=== PATIENT | male | born 1935 | race Caucasian/White ===

== ENCOUNTER → 2016-07-18 | Outpatient (CLI) | payer MEDICARE, OTHER | END | disposition home or self-care (01) | LOC: LAB.O 08:44 | PROVIDERS: ATTEND Internal Medicine Hematology & Oncology | DX: C88.0 Waldenstrom macroglobulinemia (principal); N20.1 Calculus of ureter ==

== ENCOUNTER → 2017-01-09 | Outpatient (CLI) | payer MEDICARE, OTHER ==
--- NOTE | 2017-01-09 16:06 | RAD ---
EXAM DESCRIPTION: Chest,2 Views CLINICAL HISTORY: SOB COMPARISON: None available FINDINGS: The heart is at the upper limits of normal size. Mediastinal contours are otherwise unremarkable. There is no airspace consolidation. There is subtle bilateral perihilar interstitial prominence. Mild blunting of the posterior costophrenic angles is noted on the lateral view. There is no pneumothorax or acute fracture. IMPRESSION: Indistinct bronchovascular markings and borderline cardiomegaly suggest mild pulmonary vascular congestion. Infection, probably viral, could have a similar appearance. Tiny bilateral pleural effusions. Electronically signed by: Boby Beltrán MD 01/09/2017 4:05 PM CDT
== END | disposition home or self-care (01) ==
LOC: YCFC.O 15:34
PROVIDERS: ATTEND Nurse Practitioner Family
DX: R06.02 Shortness of breath (principal)

== ENCOUNTER → 2017-01-12 | Outpatient (CLI) | payer MEDICARE, OTHER | END | disposition home or self-care (01) | LOC: GMAJ 14:38 | PROVIDERS: ATTEND Family Medicine | DX: I50.9 Heart failure, unspecified (principal) ==

== ENCOUNTER → 2017-01-21 | Outpatient (CLI) | payer MEDICARE, OTHER | END | disposition home or self-care (01) | LOC: GMAJ 14:52 | PROVIDERS: ATTEND Family Medicine | DX: I48.2 Chronic atrial fibrillation (principal); R60.0 Localized edema ==

== ENCOUNTER → 2017-01-23 | Outpatient (CLI) | payer MEDICARE, OTHER | END | disposition home or self-care (01) | LOC: LAB.O 08:15 | PROVIDERS: ATTEND Internal Medicine Hematology & Oncology | DX: D47.2 Monoclonal gammopathy (principal) ==

== ENCOUNTER → 2017-01-29 | Outpatient (CLI) | payer MEDICARE, OTHER | END | disposition home or self-care (01) | LOC: GMAJ 15:01 | PROVIDERS: ATTEND Family Medicine | DX: I48.2 Chronic atrial fibrillation (principal); R06.02 Shortness of breath ==

== ENCOUNTER → 2017-02-05 | Outpatient (CLI) | payer MEDICARE, OTHER | END | disposition home or self-care (01) | LOC: GMAJ 14:35 | PROVIDERS: ATTEND Family Medicine | DX: I50.9 Heart failure, unspecified (principal) ==

== ENCOUNTER → 2017-08-04 | Outpatient (CLI) | payer MEDICARE, OTHER | LOC: GMAJ 11:11 | PROVIDERS: ATTEND Family Medicine | DX: Z12.5 Encounter for screening for malignant neoplasm of prostate (principal) ==

== ENCOUNTER → 2017-12-21 | Outpatient (CLI) | payer MEDICARE, OTHER ==
--- NOTE | 2017-12-21 17:04 | MRI ---
EXAM DESCRIPTION: Lumbar Spine w/o Contrast : Magnetic Resonance Imaging. CLINICAL HISTORY: LOW BACK PAIN COMPARISON: X-ray lumbar spine at outside clinic 12/15/2017. TECHNIQUE: Multiplanar, multiple standard sequences, non contrast MRI, lumbar spine. FINDINGS: L5-S1: Minimal to moderate disc space loss. Minimal disc desiccation. No significant bulging. Bony canal narrowing. Bilateral mild foraminal narrowing. Posterior elements are unremarkable. L4-5: Disc desiccation with posterior midline 5 mm bulge which also extends into the right paracentral canal and the right foramen with mild foraminal stenosis. Left foramen is patent. Posterior flavum ligament hypertrophy with minimal facet arthrosis and moderate canal stenosis centrally. L3-4: Disc desiccation and minimal disc space loss. Grade 1 anterolisthesis. Disc partially bulging uncovered posteriorly. Bilateral facet arthrosis and ligament hypertrophy contributing to mild canal stenosis. Severe to borderline left foraminal stenosis more on the left than the right. L2-3: Disc desiccation and tiny posterior bulge. Minimal facet arthrosis with moderate flavum ligament hypertrophy impressing on the posterior thecal sac and borderline mild central canal stenosis. Bilateral mild foraminal narrowing. L1-2: Normal signal in the disc and disc space preserved. Canal and foramina are patent. Minimal hypertrophy of the flavum ligaments and facet arthrosis. Conus terminates just above the disc space. T12-L1: Disc space preserved with normal signal. Posterior elements unremarkable. Canal and foramina are patent. Reduced lumbar lordosis with no scoliosis. Paravertebral soft tissues minimal paraspinal muscle atrophy. Cystic mass right kidney.. Normal marrow signal in the remaining vertebral bodies and the posterior elements. Vertebral bodies are not compressed at any level. IMPRESSION: 1. Posterior midline bulge of the L4-5 disc also extending into the right Canal and right foramen with mild right foraminal stenosis. Moderate central canal stenosis. Narrowing of the bilateral subarticular recesses. 2. Grade 1 anterolisthesis at L3-4 with posterior disc bulging. Mild central canal stenosis. Bilateral subarticular recess narrowing and borderline left foraminal stenosis bilaterally. 3. Multifactorial or Lyme mild central canal stenosis at L2-3. Electronically signed by: Sumeet Dumont MD 12/21/2017 5:02 PM CDT
== END ==
LOC: MRI 10:00
PROVIDERS: ATTEND Family Medicine
DX: M51.26 Other intervertebral disc displacement, lumbar region (principal); M43.16 Spondylolisthesis, lumbar region

== ENCOUNTER → 2018-02-22 | Outpatient (CLI) | payer MEDICARE, OTHER | LOC: LAB.O 14:26 | PROVIDERS: ATTEND Internal Medicine Hematology & Oncology | DX: C88.0 Waldenstrom macroglobulinemia (principal); D47.2 Monoclonal gammopathy ==

== ENCOUNTER → 2019-03-07 | Outpatient (CLI) | payer MEDICARE, OTHER | LOC: LAB.O 11:03 | PROVIDERS: ATTEND Internal Medicine Hematology & Oncology | DX: C88.0 Waldenstrom macroglobulinemia (principal); D47.2 Monoclonal gammopathy ==

== ENCOUNTER 2019-04-15 06:47 | Day surgery (SDC) | payer MEDICARE, OTHER ==
--- NOTE | 2019-04-14 09:14 | RAD ---
EXAM DESCRIPTION: Chest,2 Views CLINICAL HISTORY: PREOP EXAM FOR PORT PLACEMENT COMPARISON: Previous study January 09, 2017 TECHNIQUE: PA/lateral FINDINGS: Heart is prominent with normal pulmonary vascularity. No pleural effusion or pneumothorax. Lungs are clear with no consolidating infiltrate. Lateral view shows intact sternum and spurring in the mid T-spine. IMPRESSION: Prominent heart without congestive failure. Electronically signed by: Oh Izaguirre MD 04/14/2019 9:12 AM EDGING CATCHER
[2019-04-15] MEDS ORDERED: LIDOCAINE 1% 10 ML VIAL INJ ONE (07:00)
[2019-04-15] MEDS ORDERED: PROPOFOL 200 MG/20 ML VIAL IV ONE (07:00)
[2019-04-15] MEDS ORDERED: SODIUM CHL 0.9% 100ML MINI-BAG 100 ML IVPB ONE (07:15)
[2019-04-15] MEDS ORDERED: LACTATED RINGERS 1,000 ML ONE (07:15)
[2019-04-15] MEDS ORDERED: ceFAZolin SODIUM 1 GM VIAL ONE (07:15)
[2019-04-15] MEDS ORDERED: HEPARIN SODIUM 100 U/ML 5 ML SYG IV ONE (07:47)
[2019-04-15] MEDS ORDERED: SODIUM BICARBONATE VIAL 50 MEQ/50 ML VIAL ONE (07:47)
[2019-04-15] MEDS ORDERED: LIDOCAINE 1% 50 ML VIAL INJ ONE (07:47)
[2019-04-15] MEDS ORDERED: SODIUM CHLORIDE 0.9% 50 ML VIAL ONE (07:47)
[2019-04-15] MEDS ORDERED: LACTATED RINGERS 1,000 ML IVS ONE (08:08)
[2019-04-15] MEDS ORDERED: KETAMINE HCL 100 MG/ML VIAL ONE (08:32)
[2019-04-15] MEDS ORDERED: MIDAZOLAM INJ 2 MG/2 ML VIAL ONE (08:32)
[2019-04-15] MEDS ORDERED: fentaNYL CITRATE INJ 50 MCG/ML AMP ONE (08:32)
--- NOTE | 2019-04-15 10:19 | OP ---
DATE OF PROCEDURE: 04/15/19 PREOPERATIVE DIAGNOSIS: 1. Waldenstrom's macroglobulinemia. POSTOPERATIVE DIAGNOSIS: 1. Waldenstrom's macroglobulinemia. PROCEDURE: 1. Insertion, right subclavian venous access port for treatments using fluoroscopy for placement of the vascular device. SURGEON: Andi Joy MD. OCCUPATIONAL THERAPY ASSIST: None. ANESTHESIA: Local infiltration of 1% lidocaine with bicarb and IV sedation by Anesthesia. INDICATION: The patient is an 83-year-old male who is going to undergo treatment for his hematologic process by Dr. Arash Escobar. I have been asked to place a venous access catheter for treatments. The patient was brought to the Surgical Suite today for same after the risks, benefits and alternatives to the procedure were discussed and accepted. FINDINGS: The guidewire and then the catheter were noted to be in the superior vena cava by fluoroscopy. PROCEDURE: The patient was brought to the Surgical Suite and placed in the supine position. He was prepped and draped in the usual sterile manner. A surgical time-out was taken. IV sedation was preformed. Local infiltration with anesthesia was obtained in the infraclavicular area on the right with 1% lidocaine. An 18-gauge thin wall needle was introduced and advanced under the clavicle. It was advanced until venous blood was aspirated. A stab wound was made with a #15 blade and then the 18-gauge thin wall needle was introduced in the same manner until blood was aspirated. The guidewire was introduced to 25 cm without any ectopy. The needle was removed. A towel was placed over the field and fluoroscopy was used to identify the guidewire in the superior vena cava. At this point, a port pocket was formed, first with local infiltration of anesthesia, then the sharp knife, then electrocautery and blunt dissection. The port pocket was formed. The port was introduced into the port pocket and sutured in place with two 3-0 Prolene sutures. When this was done, the catheter was tunneled from the port pocket to the insertion site using the tunneling device. When this was done, the tunneling device was cut off. The catheter was then cut to the appropriate length. It was wiped off with heparinized saline. The dilator introducer was then introduced over the guidewire and the guidewire and dilator were removed. The catheter was then introduced through the introducer without difficulty. The introducer was removed. When this was done, the port was accessed, was aspirated and then flushed with heparinized saline followed by heplock. It was then de-accessed. When this was done, a towel was placed over the field and again fluoroscopy was used to identify the catheter in good position. When this was done, the insertion site was closed with a single 4-0 subcuticular Vicryl suture and the port site was closed in 2 layers with the subcutaneous tissue reapproximated with interrupted 3-0 Vicryl sutures and the skin edges were approximated with 4-0 Vicryl subcuticular sutures and benzoin and Steri-Strips were used. Sterile dressings were applied. The patient tolerated the procedure well and was taken back to the Ambulatory Unit in stable condition. Estimated blood loss was less than 10 mL. A stat portable chest x- ray is pending for port placement. #[id number] [facility]
--- NOTE | 2019-04-15 10:34 | RAD ---
EXAM DESCRIPTION: Chest,1 View CLINICAL HISTORY: 83 years Male, postop port placement COMPARISON: Radiographs of the chest dated 04/13/2019. TECHNIQUE: AP radiograph of the chest was obtained. FINDINGS: Tip of the right chest [id number] overlies the atriocaval junction. Trachea is midline.The cardiomediastinal silhouette is normal in size. The pulmonary vasculature is within normal limits.The lungs are clear with no acute consolidation.No evidence of pleural effusions. IMPRESSION:Tip of the right chest [id number] overlies the atriocaval junction. No acute cardiopulmonary process. Electronically signed by: Sidra Marie MD 04/15/2019 10:33 AM CLIENT PARTNER
[2019-04-15 11:44] VITALS: BP 110/57; TEMP 96.7; O2SAT 97
--- NOTE | 2019-04-15 15:59 | RAD ---
EXAM DESCRIPTION: Fluoroscopy Up to 1Hr CLINICAL HISTORY: 83 years Male, PORT A CATH PLACEMENT COMPARISON: None. IMPRESSION: Single spot radiograph right upper chest shows the proximal aspect of a port extending superolaterally subjacent to the clavicle. The distal aspect of the catheter is not in the image. Fluoroscopy time listed as 0.6 minutes. Electronically signed by: Javier Cool MD 04/15/2019 3:58 PM [facility]
== END 2019-04-15 11:25 | disposition home or self-care (01) ==
LOC: AMB 06:47
PROVIDERS: ATTEND Surgery
DX: C88.0 Waldenstrom macroglobulinemia (principal); I25.10 Atherosclerotic heart disease of native coronary artery without angina pectoris; Z87.891 Personal history of nicotine dependence; Z79.01 Long term (current) use of anticoagulants; Z79.899 Other long term (current) drug therapy
CPT/HCPCS: 00532; 36415; 36558; 36561; 71045; 71046; 76000; 80048; 81001; 85025; 87077; 87086; 87186; 93005; A4216; C1788; J0690; J1642; J2250; J3010; J3490; J7050; J7120

== ENCOUNTER → 2020-05-09 | Outpatient (CLI) | payer MEDICARE, OTHER | LOC: GMAJ 12:52 | PROVIDERS: ATTEND Family Medicine | DX: N40.0 Benign prostatic hyperplasia without lower urinary tract symptoms (principal); Z79.899 Other long term (current) drug therapy ==